=== PATIENT | female | born 1955 | race Caucasian/White ===

== ENCOUNTER 2023-03-03 09:53 | Outpatient (CLI) | payer MEDICARE, SELFPAY | END 2023-03-03 09:54 | disposition home or self-care (01) | PROVIDERS: PCP Family Medicine; Visit Provider Family Medicine | DX: Z00.00 Encounter for general adult medical examination without abnormal findings (principal); E78.00 Pure hypercholesterolemia, unspecified; E06.3 Autoimmune thyroiditis; M81.0 Age-related osteoporosis without current pathological fracture; Z13.0 Encounter for screening for diseases of the blood and blood-forming organs and certain disorders involving the immune mechanism | CPT/HCPCS: 80053; 80061; 82306; 83540; 84439; 84443; 84481; 85027; 86376 ==

== ENCOUNTER 2023-03-04 10:25 | Outpatient (CLI) | payer MEDICARE, SELFPAY | END 2023-03-04 10:26 | disposition home or self-care (01) | LOC: NFLDREF 03-07 03:27 | PROVIDERS: PCP Family Medicine; Referring Provider Family Medicine; Visit Provider Family Medicine | DX: E06.3 Autoimmune thyroiditis (principal); M81.0 Age-related osteoporosis without current pathological fracture | CPT/HCPCS: 83993 ==

== ENCOUNTER 2023-03-13 13:33 | Outpatient (CLI) | payer MEDICARE, SELFPAY | END 2023-03-13 13:34 | disposition home or self-care (01) | LOC: NFLDREF 03-19 06:15 | PROVIDERS: PCP Family Medicine; Referring Provider Family Medicine; Visit Provider Family Medicine | DX: E06.3 Autoimmune thyroiditis (principal) | CPT/HCPCS: 84480; 84482 ==

== ENCOUNTER 2024-04-01 08:05 | Outpatient (CLI) | payer MEDICARE, SELFPAY | END 2024-04-01 08:06 | disposition home or self-care (01) | LOC: NFLDREF 04-05 11:45 | PROVIDERS: PCP Family Medicine; Referring Provider Family Medicine; Visit Provider Family Medicine | DX: E78.00 Pure hypercholesterolemia, unspecified (principal); E06.3 Autoimmune thyroiditis; M06.9 Rheumatoid arthritis, unspecified; M81.0 Age-related osteoporosis without current pathological fracture; Z13.0 Encounter for screening for diseases of the blood and blood-forming organs and certain disorders involving the immune mechanism; Z13.1 Encounter for screening for diabetes mellitus | CPT/HCPCS: 80053; 80061; 82306; 83525; 83695; 84436; 84443; 84480; 84482; 85025 ==

== ENCOUNTER 2024-04-09 10:57 | Outpatient (CLI) | payer MEDICARE, SELFPAY | END 2024-04-09 10:58 | disposition home or self-care (01) | PROVIDERS: PCP Family Medicine; Visit Provider Family Medicine | DX: E78.00 Pure hypercholesterolemia, unspecified (principal); E06.3 Autoimmune thyroiditis; M06.9 Rheumatoid arthritis, unspecified; K52.9 Noninfective gastroenteritis and colitis, unspecified; M81.0 Age-related osteoporosis without current pathological fracture; Z13.1 Encounter for screening for diabetes mellitus | CPT/HCPCS: 82728; 83090; 83540; 84439; 84480; 84481; 84482; 86376 ==

== ENCOUNTER 2024-04-20 10:57 | Outpatient (CLI) | payer MEDICARE, SELFPAY | END 2024-04-20 10:58 | disposition home or self-care (01) | LOC: LKVREF 13:37 | PROVIDERS: PCP Family Medicine; Visit Provider Family Medicine | DX: K52.9 Noninfective gastroenteritis and colitis, unspecified (principal) | CPT/HCPCS: 83993 ==

== ENCOUNTER 2024-09-02 13:56 | Outpatient (CLI) | payer MEDICARE, SELFPAY ==
--- NOTE | 2024-09-02 14:00 | CRLHL7_ITS ---
For Patients: As a result of the Cures Act, medical imaging exams and procedure reports are released immediately into your electronic medical record. You may view this report before your referring provider. If you have questions, please contact your health care provider. XR DXA Bone Mineral Density (BMD) Reason for exam: Osteopenia. Current height (inches): 68.0 Weight (lbs.): 133.0 Menopause age: 48 Ethnicity: White 1. Have you had a previous hip or vertebral fracture? No. 2. Have you had any fractures during your adult life which did not result from significant trauma (e.g., auto accident)? No. 3. Did either of your parents have a hip fracture? No. 4. Do you smoke? No. 5. Have you ever taken Glucocorticoids? Yes. 6. Do you have rheumatoid arthritis? Yes. 7. Do you have secondary osteoporosis? No. 8. Do you drink 3 or more alcoholic drinks per day? No. 9. Are you being treated for osteoporosis? No. 10. Have you ever taken any of the following medications: Actonel, Evista, Fosamax, Miacalcin, Reclast, Boniva, Forteo, HRT (i.e., estrogen/hormone therapy), Protelos, Prolia, Vitamin D, Calcium, other ??? please specify. 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 11. Do you have any of the following medical conditions: Anorexia or bulimia, asthma or emphysema, end stage renal disease, hyperparathyroidism, any seizure disorders, cancer, inflammatory bowel diseases, hysterectomy, other ??? please specify. ANSWER: No. 12. What was your maximum height (inches)? 69. 13. Do you perform weightbearing exercise regularly? Yes. 14. Do you regularly consume dairy products? Yes. 15. Do you drink caffeinated beverages? No. 16. At what age did your period start? 14. 17. Are you premenopausal? No. 18. How many full-term pregnancies have you had? 0. 19. Have you ever missed your period for more than 6 months in a row (not including or menopause)? No. TECHNIQUE: Bone mineral density study was performed using the [facility]. FINDINGS: The results of the study expressed as bone mineral density (BMD) are as follows: Lumbar Spine L2 to L3: BMD: 0.817 g/cm2. T-score: -2.2. Z-score: -0.2. Neck Left: BMD: 0.518 g/cm2. T-score: -3.0. Z-score: -1.3. Right: BMD: 0.550 g/cm2. T-score: -2.7. Z-score: -1.0. Total Left: BMD: 0.646 g/cm2. T-score: -2.4. Z-score: -1.0. Right: BMD: 0.615 g/cm2. T-score: -2.7. Z-score: -1.3. IMPRESSION: Osteoporosis. COMPARISON: Compared with scan of 08/09/2021, the bone mineral density has increased by 0.8% at the spine and increased by 0.2% at the hip. Compared with scan of 07/27/2020, the bone mineral density has decreased by 0.5% at the spine and decreased by 0.7% at the hip. *Comparison exams done prior to 10/2019 were performed on different unit, [employer]. MIREYA HAMEED M.D. Body/Diagnostic Radiologist [email or web address] Transcribed: 1:[address]/Dictated by: Mireya Hameed MD @ 09/03/2024 3:24:00 AM (Electronically Signed)
== END 2024-09-02 13:57 | disposition home or self-care (01) ==
PROVIDERS: PCP Family Medicine; Visit Provider Family Medicine
DX: M81.0 Age-related osteoporosis without current pathological fracture (principal); M06.9 Rheumatoid arthritis, unspecified
CPT/HCPCS: 77080

== ENCOUNTER 2025-02-08 07:55 | Outpatient (CLI) | payer MEDICARE, SELFPAY ==
--- NOTE | 2025-02-08 08:15 | CRLHL7_ITS ---
For Patients: As a result of the Century Cures Act, medical imaging exams and procedure reports are released immediately into your electronic medical record. You may view this report before your referring provider. If you have questions, please contact your health care provider. INDICATION: Liver disease COMPARISON: CT cardiac study 08/18/2024 TECHNIQUE: Real time del rosario scale imaging and color Doppler analysis was performed of the right upper quadrant. FINDINGS: Circumscribed cyst with thin internal septations right hepatic lobe measures 4.1 x 3.1 x 5.9 cm. Liver measures 14.8 cm. There is a normal appearance of the hepatic IVC and proximal abdominal aorta. There is no evidence of ascites. The gallbladder is of normal size and there is no evidence of intraluminal stones or sludge. The gallbladder wall measures 1 mm in thickness. The common bile duct is of normal size and measures 5 mm in diameter at the level of the keith hepatis. The pancreas appears normal. Tiny echogenic stones right kidney may be present. No hydronephrosis. The right kidney measures 10.4 cm in length. IMPRESSION: Benign right hepatic lobe cyst with internal septations measures 5.9 cm. Dictated by Geo Wallace MD @ 02/08/2025 8:38:34 AM (Electronically Signed)
== END 2025-02-08 07:56 | disposition home or self-care (01) ==
LOC: US 07:56
PROVIDERS: PCP Family Medicine; Visit Provider Family Medicine
DX: K76.9 Liver disease, unspecified (principal); K76.89 Other specified diseases of liver
CPT/HCPCS: 76705